=== PATIENT | female | born 1940 | race Caucasian/White ===

== ENCOUNTER → 2016-12-16 | Outpatient (CLI) | payer MEDICARE, BC | LOC: WC.BC 15:11 | DX: Z12.31 Encounter for screening mammogram for malignant neoplasm of breast (principal); N64.89 Other specified disorders of breast | CPT/HCPCS: 77063; G0202 ==

== ENCOUNTER → 2016-12-22 | Outpatient (CLI) | payer MEDICARE, BC | LOC: WC.BC 09:36 | PROVIDERS: ATTEND Family Medicine | DX: R92.2 Inconclusive mammogram (principal); N64.59 Other signs and symptoms in breast; N63 Unspecified lump in breast ==

== ENCOUNTER → 2016-12-31 | Outpatient (CLI) | payer MEDICARE, BC ==
[~2016-12-31] MED LIST: LIDOCAINE 1% 30ml (STERI-PAK) ONE; LIDOCAINE 2%/EPI 1:100,000 20ml MDV ONE; NORMAL SALINE 250 ML IV ONE
== END ==
LOC: IMA 09:42
PROVIDERS: ATTEND Family Medicine
DX: N63 Unspecified lump in breast (principal)
CPT/HCPCS: 19083; G0206; J7050